=== PATIENT | female | born 1970 | race Caucasian/White ===

== ENCOUNTER 2018-05-18 20:12 | Emergency (ER) | payer MEDICAID ==
[~2018-05-18] VITALS: Ht 170.2 cm; Wt 70.8 kg
[~2018-05-18 20:12] MED LIST: ARIP2TAB5 PO; CYCL-394 PO; DEXT5TAB26 PO; FLUO20CA39 PO; NORCO10T PO; TOP100T PO; TRAZ-91 PO; WEL75T PO
[2018-05-18 20:29] VITALS: BP 115/67
== END 2018-05-19 01:10 | disposition left against medical advice (07) ==
LOC: ER 20:12
DX: K08.89 Other specified disorders of teeth and supporting structures (principal); Z53.21 Procedure and treatment not carried out due to patient leaving prior to being seen by health care provider